=== PATIENT | male | born 1935 | race Caucasian/White ===

== ENCOUNTER 2018-06-05 09:52 | Outpatient (CLI) ==
--- NOTE | 2018-06-05 11:49 | CT ---
EXAM: CT abdomen pelvis without contrast HISTORY: Left lower quadrant and flank pain after passing a kidney stone last night. Patient with h istory of prior cholecystectomy COMPARISON: CT abdomen pelvis 02/05/2016 TECHNIQUE: Serial axial images of the abdomen pelvis were performed from the lung bases through the inferior pelvis without contrast. These were viewed in multiple planes. FINDINGS: The lung bases demonstrate calcified granulomas. Evaluation is limited due to lack of contrast. The left kidney demonstrates mild perinephric strandi ng with no nonobstructing stones identified. There is no hydronephrosis or hydroureter. Urinary stephanie dder is minimally distended. The right kidney demonstrates three nonobstructing renal stones. The l argest inferiorly measures 0.4 cm. The liver is unremarkable. The gallbladder has been resected. The adrenal glands are normal. Splee n is normal. Pancreas is unremarkable. Stomach is distended with a small hiatal hernia Small bowel in the abdomen pelvis is unremarkable. The colon demonstrates diverticulosis without div erticulitis. Urinary bladder is mildly distended. The prostate demonstrates central calcifications. The osseous structures demonstrate degenerative disease of the lumbosacral spine. IMPRESSION: 1. No obstructive uropathy, hydronephrosis or hydroureter. There is no visualized stone in the left kidney or stone within the urinary bladder. There is minimal nonspecific left perinephric stranding. 2. Multiple nonobstructing right renal stones with no obstructive uropathy. 3. Diverticulosis without diverticulitis.
== END 2018-06-05 09:53 | disposition home or self-care (01) ==
LOC: RAD 09:52
PROVIDERS: ATTEND Family Medicine
DX: R10.9 Unspecified abdominal pain (principal)
CPT/HCPCS: 74176; 81001

== ENCOUNTER 2018-06-08 08:38 | Outpatient (CLI) ==
--- NOTE | 2018-06-08 10:53 | MRI ---
EXAM: MRI lumbar spine without IV contrast. DATE: 08 June 2018. HISTORY: Low back pain. Left hip pain. Left flank pain. TECHNIQUE: Sagittal and axial T1W and T2W sequences of the lumbar spine along with sagittal IR and c oronal T2W sequences were obtained using 1.2 Abigail magnet. No IV contrast. COMPARISON: MRI L-spine 03/20/2012. CT abdomen/pelvis 05 June 2018. FINDINGS: There are five [id number] lumbar vertebra. Mild rotatory dextroscoliosis of the lowe r thoracic and lumbar spine is evident. Osseous fusion of the L5 and S1 vertebra is redemonstrated. A a 2 mm anterior subluxation of L3 relative to L2, and 3 mm anterolisthesis of L4 relative to L5 ar e observed. No other subluxation, acute fracture, osseous malignancy, or pars interarticularis defec t is demonstrated. Lumbar vertebra are normal in height. Small/moderate osteophytes are present mul tiple lumbar levels. Chronic Schmorl's nodes are identified at T11, L1, L3 and L4. T2W/T1W bright, 9 mm focus in the L1 body is likely a benign hemangioma. Minor L2-3, mild/moderate L3-4, and minor L 4-5 disc space narrowing is detected. No acute sacral fracture or stress reaction is evident. Patch y areas of T2W/T1W bright signal within bilateral sacral ala are consistent with fatty infiltration. Small anterior osteophytes at the SI joint suggest minor arthritis. Spinous process arthritis is no axel at several levels. Conus medullaris terminates at L1-2. No cord edema, syrinx, myelomalacia, or neoplasm is identified. No retroperitoneal lymphadenopathy, paraspinal mass, or aortic aneurysm is detected. Atherosclerotic plaques are present within the aortic wall. Psoas muscles are normal. Posterior paraspinal muscles are symmetric bilaterally. Visible portions of the liver, spleen, and adrenal glands reveal no abno rmality. A T1W slightly dark, 11 mm focus in the posterolateral cortex lower pole right kidney corre sponds with low density (HU = 31). No solid renal mass or hydronephrosis is evident in either kidney . Segmental analysis: T11-12: Minor posterior disc bulge and mild facet arthropathy appear to cause borderline central can al stenosis and mild bilateral foraminal stenoses. T12-L1: Minor posterior disc bulge and minor facet arthropathy cause mild right foraminal narrowing. No central canal stenosis. L1-2: Small concentric disc bulge, mild facet arthropathy, and moderate ligamentum flavum hypertroph y cause mild/moderate central canal stenosis, mild right foraminal stenosis, and marked narrowing at the opening to the left foramen. Left L1 nerve root contacts the disc bulge near the lateral margin of the foramen. L2-3: Minor anterolisthesis of L3, moderate concentric disc bulge, mild facet arthropathy, and mild ligamentum flavum hypertrophy cause moderate central canal stenosis, minor/mild right foraminal steno sis, and mild left foraminal stenosis. Left L2 nerve root contacts disc bulge near the lateral kartik n of the foramen. L3-4: Small concentric disc bulge, moderate facet arthropathy, and moderate ligamentum flavum hypert rophy cause mild/moderate central canal stenosis, marked narrowing at the opening to the right forame n, and moderate left foraminal stenosis. Each L3 nerve root touches disc bulge near the lateral jerardo in of the foramen. L4-5: Minor anterolisthesis of L4, pseudodisc bulge, small right post lateral spondylotic ridges at L4 and L5, marked facet arthropathy, and mild ligamentum flavum hypertrophy cause triangulation of th e canal, mild right foraminal stenosis, and mild/moderate left foraminal stenosis. Right L4 nerve candace t contacts disc bulge/facet disease near the foramen. L5-S1: Previous osseous fusion of L5 and S1 appears stable. Small bilateral post lateral spondyloti c ridges at L5 cause minor bilateral foraminal narrowing. No central canal stenosis. IMPRESSIONS: 1. Thoracolumbar mild rotatory dextroscoliosis, small lumbar subluxations, multilevel facet arthropa thy (jaja. L3-4 and L4-5), and multilevel DDD - - similar to March 2012. 2. Multilevel lumbar foraminal stenoses. Left L1, left L2, both L3, and left L4 nerve roots contact disc bulges near the foramen, and may be sources for pain/radiculopathy. 3. Multilevel central canal stenoses (L1-2: Mild/moderate. L2-3: Moderate. L4: Mild/moderate. L4- 5: Minor). 4. Chronic Schmorl's nodes at T11, L1, L3, and L4. 5. Multilevel spinous process arthritis (mild). 6. Moderate aortic atherosclerosis. 7. Right kidney small exophytic lesion - not fully characterized. CT scan or MRI without/with IV co ntrast using renal protocol may be helpful to confirm a diagnosis.
== END 2018-06-08 08:39 | disposition home or self-care (01) ==
LOC: RAD 08:38
PROVIDERS: ATTEND Family Medicine
DX: M54.40 Lumbago with sciatica, unspecified side (principal); G89.29 Other chronic pain

== ENCOUNTER 2018-07-04 14:00 | Outpatient (RCR) ==
--- NOTE | 2018-06-22 08:57 | RS.OPPTEV2 ---
Date of Note: 06/21/18 Visit #: 1 Number of visits approved by Insurance: NA Date of Evaluation: 06/21/18 Payer Source: MEDICARE Treatment Diagnosis: Low back pain History of Condition/Mechanism of Injury:: Mr. Duque reports having low back pain for a few months. He reports no known injury. He received a few injections in his spine on Monday. He states the injections were no benefit. 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 Duque reoprts constant low back pain. States most of his pain is on the left low back area. He reports all positions or activities are painful. Reports difficulty performing ADL's that require standing or sitting for very long due to increased back pain. States the left low back/hip area feels like his has a knife sticking in it. He denies tingling or numbness in either LE. States he has not noticed any weakness in his LE's. States pain medication is not helping as much as it use to. He has tried ice and heating pad on his low back. States heat seems to help more. Medical History Medical History: Hypertension, Diabetes Smoking Status: Never smoker Diagnostic Testing/Imaging:: MRI of Lumbar spine w/o constrast on 06/08/18: Impression: Thoracolumbar mild rotatory dextroscoliosis, small lumbar subluxations, multilevel facet arthropathy, and multilevel DDD. Multilevel lumbar foraminal stenoses. Multilevel central canal stenoses. Chronic Schmorl's nodes, Multilevel spinous process arthritis. Full report in patient's EMR. Hx Home Medications: amlodine, Lisinopril, Pantoprazole, Clopidogrel, Tamsulosin Patient's Goals: His goal is to get some relief of back pain. Pain Assessment - Pain Description Pain Location: low back pain Current Pain Intensity: 3/10 Worst Pain Intensity: 10/10 Functional Outcome Measure Oswestry LBP: 56 - G Codes & Severity Modifier G Codes & Modifier: Mob current CK. Mob goal CI Source of G Code score: Oswestry LBP scale Observation - Observation Posture: Forward Head, Rounded Shoulders, Decreased Lumbar Lordosis Gait - Gait Pattern Gait Comments: Mr. Duque ambulates independently with a slow, guarded gait. He presents flexed at the lumbar spine while standing or ambulating. He demonstrates decreased hip and knee flexion bilaterally during swing phase. - ROM Lumbar Flexion: Hand reach to Mid-Shins Sidebending to Left: Reach to Mid-thigh Sidebending to Right: Reach to Mid-thigh Lumbar Spine ROM Limitations: Pain Comments: Lumbar extension ~ 10 degrees past neutral causes significant increase in back pain. Bilateral LE AROM is WFL's. - Strength Trunk Rotation: 4 Good Comments: LE strength 4+ to 5/5 throughout. - Special Tests JAVIER Test: Negative Left, Negative Right SLR Test: Negative Right, Positive Left Seated Dural Stretch Test: Negative Right, Positive Left SI Joint Compression: Negative Palpation Comments:: Mr. Duque reports tenderness at the left lumbar spine and toward the left iliac crest. Also reports tenderness with moderate pressure to the superior gluteal musculature on the left. Voices no pain with Central PA's over the lumbar spinous processes. Sensation - Sensation Right Lower Extremity: Intact/Normal Left Lower Extremity: Intact/Normal Additional Comments: Additional Comments: Supine SLR to 30 degrees on the left, 50 degrees on the right. - Heat/Cryotherapy Treatment: Hot Pack (X 12 mins to lumbar spine/hips in sitting) - Traction Treatment Method: Mechanical, Intermittent, Lumbar Patient Position: Supine Amount of Force Applied: 50 lbs Hold Time: 30 seconds Rest Time: 5 seconds Duration of treatment: 12 mins Traction Treatment Comment: Mr. Duque stated that it was the best his back has felt lately, while on the traction. Interventions - Exercise/Activities/Manual Therapy Exercises/Activities: None given today. Discussed positioning on his back with hips and knees at 90 degrees flexion to decrease disc pressure. Manual Therapy: NA - Charges Timed Code Treatment Minutes: 22 mins Total Treatment Time: 48 mins Procedures billed for this date of service:: EVAL medium, mechanical traction EVALUATION COMPLEXITY LEVEL EVALUATION COMPLEXITY LEVEL: HISTORY: Medium (Diabetes, HTN, HX of back pain), EXAM OF BODY SYSTEMS: Medium (ROM, mobility, pain), CLINICAL PRESENTATION: Medium, CLINICAL DECISION MAKING: Medium Assessment Assessment: Mr. Duque presents to therapy with a diagnosis of Spinal stenosis of the lumbar region. He reports constant low back pain, with all activities and positions. He demonstrates limited lumbar mobility and an imbalance in LE flexibility. Left HS is significantly tighter than the right and he also demonstrates more muscle guarding on the left lumbar paraspinals and gluteal musculature. He demonstrates good potential to get relief of his low back pain with skilled treatment of modalities, mechanical traction, and exercises. Patient Education: Education of diagnosis, Body/Joint mechanics, Home Safety, Activity Modification, Education of Plan of Care Rehab Potential: Good Short Term Goals Goal #1: Pt to report back pain is less than constant. Goal to be met by: 07/06/18 Goal #2: Left SLR in supine improved to 45 degrees. Goal to be met by: 07/06/18 Goal #3: Pt independent and compliant with HEP. 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 Goal to be met by: 08/01/18 Goal #2: Score on Oswestry LBP scale improved to 19% or less impairment. Goal to be met by: 08/01/18 Goal #3: Pt to tolerate sitting/standing positions for ADL's with minimal back pain. Goal to be met by: 08/01/18 Goal #4: Pt to amb. with functional gait speed and minimal postural deviation. Goal to be met by: 08/01/18 Plan - Treatment to be Provided Procedures: Therapeutic Exercises, Therapeutic Activity, Manual Therapy, Patient Education Modalities: Electrical Stimulation, Ultrasound/Phonophoresis, Cryotherapy, Hot Packs, Mechanical Traction (Lumbar) - Treatment Plan Frequency: 3 X week Duration: 4 weeks Dates of Heavy Truck Driver Goals: 08/01/18 Expiration date of current Insurance Approval:: NA - Treatment Code (1) Low back pain Code(s): M54.5 - LOW BACK PAIN Qualifiers: Chronicity: acute Back pain laterality: unspecified Sciatica presence: unspecified whether sciatica present Qualified Code(s): M54.5 - Low back pain (2) Gait abnormality Code(s): R26.9 - UNSPECIFIED ABNORMALITIES OF GAIT AND MOBILITY Comments: R26.9 (3) Spinal stenosis of lumbar region Code(s): M48.06 - SPINAL STENOSIS, LUMBAR REGION * DO NOT USE * Qualifiers: Neurogenic claudication status: unspecified Qualified Code(s): M48.061 - Spinal stenosis, lumbar region without neurogenic claudication
--- NOTE | 2018-06-22 15:34 | RS.OPPTDN ---
Subjective Date of Note: 06/22/18 Visit #: 2 Number of visits approved by Insurance: NA Date of Evaluation: 06/21/18 Payer Source: MEDICARE Treatment Diagnosis: Low back pain Current Subjective/complaints:: Reports having difficulty sleeping last night, but a little less pain today. Pain Assessment - Pain Description Pain Description: 04/13 Other Comments regarding Pain:: taking pain meds - Heat/Cryotherapy Treatment: Hot Pack (20 mins. prior to ex and traction) - Traction Treatment Method: Mechanical, Intermittent, Lumbar Patient Position: Supine Amount of Force Applied: 55 # Hold Time: 30 secs. Rest Time: 5 secs. Duration of treatment: 20 mins. Interventions - Exercise/Activities/Manual Therapy Exercises/Activities: 20 mins. gentle stretches of SKTC,DKTC,90/90 hamstring stretches,piriformis stretches. Total minutes of Exercise: 20 Manual Therapy: NA Total minutes of Manual Therapy: 0 - Charges Timed Code Treatment Minutes: 40 Total Treatment Time: 60 Procedures billed for this date of service:: hp,ex,traction Assessment: Patient reports relief when supine after stretches and during traction today,but pain returns immediately when standing.He has guarded motions ,flexed posture as he ambulates.He has moderate hams. tightness ,and also the L piriformis/IT band. Patient Education: Education of diagnosis, Body/Joint mechanics, Home Exercise Program, Home Safety, Activity Modification, Education of Plan of Care Short Term Goals Goal #1: Pt to report back pain is less than constant. Goal to be met by: 07/06/18 Progress towards Goal:: Progressing Goal #2: Left SLR in supine improved to 45 degrees. Goal to be met by: 07/06/18 Goal #3: Pt independent and compliant with HEP. 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 Goal to be met by: 08/01/18 Goal #2: Score on Oswestry LBP scale improved to 19% or less impairment. Goal to be met by: 08/01/18 Goal #3: Pt to tolerate sitting/standing positions for ADL's with minimal back pain. Goal to be met by: 08/01/18 Goal #4: Pt to amb. with functional gait speed and minimal postural deviation. Goal to be met by: 08/01/18 Plan Dates of Trailer Body Assembler Goals: 08/01/18 Expiration date of current Insurance Approval:: 08/01/18 PLAN: Continue PT to increase lumbar flexibility ,decrease LBP and sciatica.
--- NOTE | 2018-06-25 15:33 | RS.OPPTDN ---
Subjective Date of Note: 06/25/18 Visit #: 3 Number of visits approved by Insurance: NA Date of Evaluation: 06/21/18 Payer Source: MEDICARE Treatment Diagnosis: Low back pain Current Subjective/complaints:: Reports the traction last session relieves his pain,but the pain had returned by the time he got to his car.He presents today with guarded posture ,flexed at waist with initial standing. Pain Assessment - Pain Description Pain Location: lumbar and radiating into the L thigh Pain Description: Radiating, Dull, Aching, Chronic Current Pain Intensity: 7 Other Comments regarding Pain:: less pain after manual therapy,not rated - Heat/Cryotherapy Treatment: Hot Pack (20 mins. prior to traction) - Traction Treatment Method: Mechanical, Intermittent, Lumbar Patient Position: Supine Amount of Force Applied: 60 # Hold Time: 30 secs. Rest Time: 5 secs. Duration of treatment: 20 mins. Traction Treatment Comment: No pain during traction. Interventions - Exercise/Activities/Manual Therapy Exercises/Activities: NA Total minutes of Exercise: 0 Manual Therapy: 25 mins. deep tissue mobs. to lumbar and L hip region Total minutes of Manual Therapy: 25 HOME EXERCISE PROGRAM: Hold today due to report of elevated pain after exercises at last session. - Charges Timed Code Treatment Minutes: 45 Total Treatment Time: 65 Procedures billed for this date of service:: hp,traction,manual 2 Assessment: Patient reports relief after manual therapy today.He has no pain during the traction.He ahs more erect posture and less antalgic gait as he exits the clinic.We discussed to continue use moist heat or cold for pain control.We also discussed to hold the exercises if it elevates the pain ,and will incorporate the exercises as tolerated. Patient Education: Education of diagnosis, Body/Joint mechanics, Home Exercise Program, Home Safety, Activity Modification, Education of Plan of Care Short Term Goals Goal #1: Pt to report back pain is less than constant. Goal to be met by: 07/06/18 Progress towards Goal:: Progressing Goal #2: Left SLR in supine improved to 45 degrees. Goal to be met by: 07/06/18 Goal #3: Pt independent and compliant with HEP. Goal to be met by: 07/06/18 Venetian Blind Maker Goals Goal #1: Pt knows HEP and to continue ex's to maintain functional level at D/C. Goal to be met by: 08/01/18 Goal #2: Score on Oswestry LBP scale improved to 19% or less impairment. Goal to be met by: 08/01/18 Goal #3: Pt to tolerate sitting/standing positions for ADL's with minimal back pain. Goal to be met by: 08/01/18 Progress towards goal: Progressing Goal #4: Pt to amb. with functional gait speed and minimal postural deviation. Goal to be met by: 08/01/18 Progress towards goal: Progressing Plan Dates of Venetian Blind Maker Goals: 08/01/18 Expiration date of current Insurance Approval:: NA PLAN: Cont. PT to reduce/eliminate back/sciatic pain.Educate patient for HEP, low back protection.
--- NOTE | 2018-06-27 15:33 | RS.OPPTDN ---
Subjective Date of Note: 06/27/18 Visit #: 4 Number of visits approved by Insurance: NA Date of Evaluation: 06/21/18 Payer Source: MEDICARE Treatment Diagnosis: Low back pain Current Subjective/complaints:: Reports his pain returned when walking to the car after last session,yesterday was rather uncomfortable ,but today is better.The pain is more in the L hip ,as opposed to the back today. Pain Assessment - Pain Description Pain Location: lumbar and L hip Pain Description: Radiating, Aching Current Pain Intensity: 6-7 Worst Pain Intensity: 7 Other Comments regarding Pain:: pain has been as low as 3/10 the past couple of days,and slept last night with no pain for a couple of hours at a time - Treatment Modality: Ultrasound Parameters/Method Applied: 10 mins. ,continuous mode @ 1.5 w/cm2 to L gluteal/ piriformis area. Patient Position: Right Sidelying - Heat/Cryotherapy Treatment: Hot Pack (20 mins. prior to US and traction) - Traction Treatment Method: Mechanical, Intermittent, Lumbar Patient Position: Supine Amount of Force Applied: 65 Hold Time: 30 secs. Rest Time: 3 secs. Duration of treatment: 20 mins. Traction Treatment Comment: Tolerates traction well ,but the pain returns rapidly with standing. Interventions - Exercise/Activities/Manual Therapy Exercises/Activities: NA Total minutes of Exercise: 0 Manual Therapy: NA Total minutes of Manual Therapy: 0 HOME EXERCISE PROGRAM: Pelvic tilts,SKTC,DKTC,piriformis stretches.90/90 hamstring stretches as tolerated. - Charges Timed Code Treatment Minutes: 30 Total Treatment Time: 50 Procedures billed for this date of service:: hp,US,traction Assessment: Patient has slight improvement with brief periods of less pain .The L hip pain returns immedaitely when standing after traction,and increases as he walks across the PT gym.He has good understanding of HEP,but instructed to avoid them when the pain is elevated .He has good understanding and knows his limitations. Patient Education: Body/Joint mechanics, Home Exercise Program, Education of Plan of Care Patient demonstrates compliance with HEP?: Yes Short Term Goals Goal #1: Pt to report back pain is less than constant. Goal to be met by: 07/06/18 Progress towards Goal:: Progressing Goal #2: Left SLR in supine improved to 45 degrees. Goal to be met by: 07/06/18 Progress towards Goal:: Progressing Goal #3: Pt independent and compliant with HEP. Goal to be met by: 07/06/18 Progress towards Goal:: Progressing Alf Goals Goal #1: Pt knows HEP and to continue ex's to maintain functional level at D/C. Goal to be met by: 08/01/18 Progress towards goal: Progressing Goal #2: Score on Oswestry LBP scale improved to 19% or less impairment. Goal to be met by: 08/01/18 Goal #3: Pt to tolerate sitting/standing positions for ADL's with minimal back pain. Goal to be met by: 08/01/18 Progress towards goal: Progressing Goal #4: Pt to amb. with functional gait speed and minimal postural deviation. Goal to be met by: 08/01/18 Progress towards goal: No Change Plan Dates of Alf Goals: 08/01/18 Expiration date of current Insurance Approval:: 08/01/18 PLAN: Cont. PT to reduce/eliminate back and sciatic pain.
--- NOTE | 2018-06-29 16:13 | RS.OPPTDN ---
Subjective Date of Note: 06/29/18 Visit #: 5 Number of visits approved by Insurance: NA Date of Evaluation: 06/21/18 Payer Source: MEDICARE Treatment Diagnosis: Low back pain Current Subjective/complaints:: Patient reports yesterday and today the pain is better,minimal L hip pain ,now more in the lumbar area. Pain Assessment - Pain Description Pain Location: lumbar area Pain Description: Tightness, Dull, Aching, Chronic Current Pain Intensity: 4 - Treatment Modality: Ultrasound Parameters/Method Applied: 10 mins. ,continuous mode @ 1.5 w/cm 2. Patient Position: Right Sidelying - Heat/Cryotherapy Treatment: Hot Pack (20 mis. prior toUS and traction) - Traction Treatment Method: Mechanical, Intermittent, Lumbar Patient Position: Supine Amount of Force Applied: 65# Hold Time: 30 secs. Rest Time: 5 secs. Duration of treatment: 20 Traction Treatment Comment: Tolerates well. Interventions - Exercise/Activities/Manual Therapy Exercises/Activities: NA Total minutes of Exercise: 0 Manual Therapy: NA Total minutes of Manual Therapy: 0 HOME EXERCISE PROGRAM: Pelvic tilts,SKTC,DKTC,piriformis stretches.90/90 hamstring stretches as tolerated. - Charges Timed Code Treatment Minutes: 30 Total Treatment Time: 50 Procedures billed for this date of service:: hp,US,traction Assessment: Patient progressing ,he reports the pain does not return immediately today after standing and walking across the gym.He has more erect posture,increased step length.He understands the exercises as the pain lessens, but exercise in a PAIN FREE ROM. Patient Education: Education of diagnosis, Body/Joint mechanics, Home Exercise Program, Home Safety, Activity Modification, Education of Plan of Care Patient demonstrates compliance with HEP?: Yes Short Term Goals Goal #1: Pt to report back pain is less than constant. Goal to be met by: 07/06/18 Progress towards Goal:: Progressing Goal #2: Left SLR in supine improved to 45 degrees. Goal to be met by: 07/06/18 Progress towards Goal:: Progressing Goal #3: Pt independent and compliant with HEP. Goal to be met by: 07/06/18 Progress towards Goal:: Progressing Mcfp Goals Goal #1: Pt knows HEP and to continue ex's to maintain functional level at D/C. Goal to be met by: 08/01/18 Progress towards goal: Progressing Goal #2: Score on Oswestry LBP scale improved to 19% or less impairment. Goal to be met by: 08/01/18 Goal #3: Pt to tolerate sitting/standing positions for ADL's with minimal back pain. Goal to be met by: 08/01/18 Progress towards goal: Progressing Goal #4: Pt to amb. with functional gait speed and minimal postural deviation. Goal to be met by: 08/01/18 Progress towards goal: Progressing Plan Dates of Mcfp Goals: 08/01/18 Expiration date of current Insurance Approval:: NA PLAN: Cont. PT to reduce/eliminate back pain.
--- NOTE | 2018-07-02 15:19 | RS.OPPTDN ---
Subjective Date of Note: 07/02/18 Visit #: 6 Number of visits approved by Insurance: NA Date of Evaluation: 06/21/18 Payer Source: MEDICARE Treatment Diagnosis: Low back pain Current Subjective/complaints:: Patient reports his pain has varied significantly over the weekend ,has had periods of less pain ,then at time sthe pain is severe.He does report the traction seems to be the most effective for relief.He also reports sleeping better last night.He has moderate pain today. Pain Assessment - Pain Description Pain Location: lumbar Pain Description: Dull, Aching, Chronic Current Pain Intensity: not rated Other Comments regarding Pain:: minimal pain while supine and on traction - Treatment Modality: Class 4 Laser Parameters/Method Applied: 8 mins. for chronic lumbar pain Treatment Area: lumbar Patient Position: Sitting - Heat/Cryotherapy Treatment: Hot Pack (20 mins. prior to Laser and traction) Interventions - Exercise/Activities/Manual Therapy Exercises/Activities: NA Total minutes of Exercise: 0 Manual Therapy: NA Total minutes of Manual Therapy: 0 HOME EXERCISE PROGRAM: Pelvic tilts,SKTC,DKTC,piriformis stretches.90/90 hamstring stretches as tolerated. - Charges Timed Code Treatment Minutes: 28 Total Treatment Time: 48 Procedures billed for this date of service:: hp,traction ,no charge for LASER today Assessment: Patient reports sleeping better and less pain when in supine.He also reports the pain does not return as quickly when standing today.We will rewsume exercises when the pain level lessens. Patient Education: Education of diagnosis, Body/Joint mechanics, Home Exercise Program, Home Safety, Activity Modification, Education of Plan of Care Patient demonstrates compliance with HEP?: Yes Short Term Goals Goal #1: Pt to report back pain is less than constant. Goal to be met by: 07/06/18 Progress towards Goal:: Progressing Goal #2: Left SLR in supine improved to 45 degrees. Goal to be met by: 07/06/18 Progress towards Goal:: Partially Met Goal #3: Pt independent and compliant with HEP. Goal to be met by: 07/06/18 Progress towards Goal:: No Change Comments:: Exercises withheld today ,focusing on pain control Family Resource Coordinator Goals Goal #1: Pt knows HEP and to continue ex's to maintain functional level at D/C. Goal to be met by: 08/01/18 Goal #2: Score on Oswestry LBP scale improved to 19% or less impairment. Goal to be met by: 08/01/18 Goal #3: Pt to tolerate sitting/standing positions for ADL's with minimal back pain. Goal to be met by: 08/01/18 Progress towards goal: Progressing Goal #4: Pt to amb. with functional gait speed and minimal postural deviation. Goal to be met by: 08/01/18 Progress towards goal: Progressing Plan Dates of Long-Term Goals: 08/01/18 Expiration date of current Insurance Approval:: 08/01/18 PLAN: Cont. PT to reduce/eliminate back pain ,return to PLOF.
--- NOTE | 2018-07-04 15:30 | RS.OPPTDN ---
Subjective Date of Note: 07/04/18 Visit #: 7 Number of visits approved by Insurance: NA Date of Evaluation: 06/21/18 Payer Source: MEDICARE Treatment Diagnosis: Low back pain Current Subjective/complaints:: He reports he had elevated pain after the last session ,was severe by the time he got to the car,but much better yesterday and today.He rports sleeping better. Pain Assessment - Pain Description Pain Location: lumbar Current Pain Intensity: 3/10 Other Comments regarding Pain:: Reports he had minimal to no pain periodically yesterday. - Heat/Cryotherapy Treatment: Hot Pack (20 mins. prior to traction) - Traction Treatment Method: Mechanical, Intermittent, Lumbar Patient Position: Supine Amount of Force Applied: 65# Hold Time: 30 secs. Rest Time: 5 secs. Duration of treatment: 20 mins. Traction Treatment Comment: Tolerates wellno pain while on traction Interventions - Exercise/Activities/Manual Therapy Exercises/Activities: Attempted bilateral hamstring stretches ,tolerates this on the R ,but elicits pain with L hams.stretch. 2 reps. of Gentle trunk extension in standing attempted,but immediately causes back pain. Total minutes of Exercise: 5 Manual Therapy: NA Total minutes of Manual Therapy: 0 HOME EXERCISE PROGRAM: Pelvic tilts,SKTC,DKTC,piriformis stretches.90/90 hamstring stretches as tolerated. - Charges Timed Code Treatment Minutes: 25 Total Treatment Time: 45 Procedures billed for this date of service:: hp,traction ( no charge for exercise ) Assessment: Patient has more erect posture ,sleeping beter.He had minimal to no pain periodically yesterday.He has low tolerance to HEP at this time ,but understands to try them when he has no pain ,but also to stop if back pain / radiculopathy occurs. Patient Education: Education of diagnosis, Body/Joint mechanics, Home Exercise Program, Home Safety, Activity Modification, Education of Plan of Care Short Term Goals Goal #1: Pt to report back pain is less than constant. Goal to be met by: 07/06/18 Progress towards Goal:: Progressing Goal #2: Left SLR in supine improved to 45 degrees. Goal to be met by: 07/06/18 Progress towards Goal:: Partially Met Goal #3: Pt independent and compliant with HEP. Goal to be met by: 07/06/18 Progress towards Goal:: Progressing Assisted Goals Goal #1: Pt knows HEP and to continue ex's to maintain functional level at D/C. Goal to be met by: 08/01/18 Progress towards goal: Progressing (Improved static stance ,more erect posture.) Goal #2: Score on Oswestry LBP scale improved to 19% or less impairment. Goal to be met by: 08/01/18 Goal #3: Pt to tolerate sitting/standing positions for ADL's with minimal back pain. Goal to be met by: 08/01/18 Progress towards goal: Progressing Goal #4: Pt to amb. with functional gait speed and minimal postural deviation. Goal to be met by: 08/01/18 Progress towards goal: Progressing Plan Dates of Flow Worker Goals: 08/01/18 Expiration date of current Insurance Approval:: 08/01/18 PLAN: Cont. skilled PT to reduce/eliminate lumbar pain and sciatica,achieving the highest LOF possible.
== END 2018-07-04 23:59 ==
PROVIDERS: ATTEND Family Medicine
DX: M48.061 Spinal stenosis, lumbar region without neurogenic claudication (principal); M54.5 Low back pain; R26.9 Unspecified abnormalities of gait and mobility